=== PATIENT | male | born 1995 | race Caucasian/White ===

== ENCOUNTER 2021-12-09 15:04 | Emergency (ER) | payer OTHER ==
[2021-12-09 15:12] VITALS: BP 126/77
[2021-12-09] MEDS ORDERED: ONDANSETRON 4 MG/2 ML VIAL IVP STA (15:17)
[2021-12-09] MEDS ORDERED: SODIUM CHLORIDE 0.9% 1,000 ML IV STA (15:17)
[2021-12-09] MEDS ORDERED: ONDANSETRON ODT 4 MG TABLET TL STA (15:27)
--- NOTE | 2021-12-09 15:31 | ED Physician Documentation ---
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 He typically works overnight. Went to bed feeling well woke up this morning with some persistent nausea. Some fatigue. No vomiting. No fevers no abdominal pain. No fainting episodes. Denies chest pain or shortness of air. 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 Denies any pertinent past medical history. Denies cannabis or alcohol use though he does use 2 lists tobacco. Review of Systems Constitutional: denies: Fever Eyes: reports: Reviewed and negative Nose: reports: Reviewed and negative Throat: reports: Reviewed and negative Cardiac: reports: Reviewed and negative Respiratory: reports: Reviewed and negative GI: reports: Reviewed and negative : reports: Reviewed and negative Skin: denies: Rash, Lesions Musculoskeletal: reports: Reviewed and negative Neurologic: reports: Reviewed and negative Psychiatric: reports: Reviewed and negative Endocrine: reports: Reviewed and negative PD PAST MEDICAL HISTORY - Present Medications Home Medications: Ambulatory Orders Medication Instructions Recorded Confirmed Ondansetron Odt [Zofran] 4 mg TL Q6H PRN #10 tablet 12/09/21 - Allergies Allergies/Adverse Reactions: Allergies Allergy/AdvReac Type Severity Reaction Status Date / Time No Known Drug Allergies Allergy Verified 12/09/21 15:12 PD ED PE NORMAL - General General: Alert and oriented X 3, No acute distress - HEENT HEENT: PERRL - Neck Neck: Supple, no meningeal sign, No adenopathy - Cardiac Cardiac: RRR, No murmur - Respiratory Respiratory: No respiratory distress, Clear bilaterally - Abdomen Abdomen: Normal bowel sounds, Soft, Non tender - Derm Derm: Normal color, Warm and dry, No rash - Extremities Extremities: No deformity, No tenderness to palpate, Normal ROM s pain - Neuro Neuro: Alert and oriented X 3 Eye Opening: Spontaneous Motor: Obeys Commands Verbal: Oriented GCS Score: 15 Results - Vitals Vitals: Vital Signs - 24 hr 12/09/21 12/09/21 15:08 15:15 Temperature 36.6 C Heart Rate 60 Respiratory 14 12 Rate Blood Pressure 126/77 O2 Saturation 99 Oxygen O2 Source Room air - Labs Labs: Laboratory Tests 12/09/21 12/09/21 12/09/21 15:24 15:24 Unknown WBC 6.4 RBC 5.07 Hgb 17.0 Hct 46.7 MCV 92.1 MCH 33.5 H MCHC 36.4 H RDW 11.9 L Plt Count 208 MPV 10.4 Neut # (Auto) 3.5 Lymph # (Auto) 2.2 [place] # (Auto) 0.7 Eos # (Auto) 0.1 Baso # (Auto) 0.0 Absolute Nucleated RBC 0.00 Nucleated RBC % 0.0 Sodium 140 Potassium 4.2 Chloride 100 L Carbon Dioxide 29 Anion Gap 11.0 BUN 15 Creatinine 1.0 Estimated GFR (MDRD) 91 Glucose 94 Calcium 9.7 Total Bilirubin 1.1 H AST 16 ALT 16 Alkaline Phosphatase 58 Total Protein 8.0 Albumin 5.2 Globulin 2.8 Albumin/Globulin Ratio 1.9 Lipase 35 Urine Color YELLOW Urine Clarity CLEAR Urine pH 6.5 Ur Specific [place] 1.020 Urine Protein NEGATIVE Urine Glucose (UA) NEGATIVE Urine Ketones NEGATIVE Urine Occult Blood TRACE-LYSE Urine Nitrite NEGATIVE Urine Bilirubin NEGATIVE Urine Urobilinogen 1 (NORMAL) Ur Leukocyte Esterase NEGATIVE Ur Microscopic Review NOT INDICATED Urine Culture Comments NOT INDICATED PD MEDICAL DECISION MAKING - ED course Complexity details: reviewed results, re-evaluated patient, considered differential, d/w patient ED course: Well-appearing 26-year-old male presents emergency department for evaluation of nausea that began this morning when he woke up. He frequently reports a.m. nausea but usually resolves and did not today. He has no fevers no abdominal pain and no vomiting. His flight surgeon was unable to see him today and he was advised to come to the ER. Screening labs were unremarkable. He was given some oral Zofran and easily tolerating p.o.'s. Prescription for Zofran will be sent to the pharmacy. Otherwise emergent return precautions were discussed. Given the lack of abdominal tenderness and unremarkable vitals we did defer advanced imaging. Departure - Departure Disposition: 01 Home, Self Care Clinical Impression: Nausea Condition: Stable Record reviewed to determine appropriate education?: Yes Prescriptions: Ondansetron Odt [Zofran] 4 mg TL Q6H PRN #10 tablet PRN Reason: Nausea / Vomiting Comments: Maksim were seen today in the emergency department for nausea and feeling like he had the stomach bug. Your screening labs today were essentially normal. I am sending a prescription for some Zofran to the [facility] in [place]. It is okay for you to return to work tomorrow as long as you are not vomiting, having fevers or belly pain. I do recommend that you stop your use of smokeless tobacco. You have a 25% lifetime risk of developing oral cancer with continued use of this. In addition to this tobacco use can cause worsening a.m. nausea. Please discuss this ED visit with your flight surgeon as soon as you are able.
[2021-12-09 15:37] LABS: BASOPHILS % (AUTO) 0.3 %; EOSINOPHILS # (AUTO) 0.1 10^3/uL (0.0-0.7); EOSINOPHILS % (AUTO) 1.6 %; HCT - HEMATOCRIT 46.7 % (42.0-52.0); LYMPHOCYTES # (AUTO) 2.2 10^3/uL (1.5-3.5); LYMPHOCYTES % (AUTO) 33.8 %; MEAN CORPUSCULAR HEMOGLOBIN 33.5 pg (27.0-31.0); MEAN CORPUSCULAR HGB CONC 36.4 g/dL (32.0-36.0); MEAN CORPUSCULAR VOLUME 92.1 fL (80.0-94.0); MEAN PLATELET VOLUME 10.4 fL (7.4-11.4); MONOCYTES # (AUTO) 0.7 10^3/uL (0.0-1.0); MONOCYTES % (AUTO) 10.2 %; NEUTROPHILS # (AUTO) 3.5 10^3/uL (1.5-6.6); NEUTROPHILS % (AUTO) 53.9 %; PLT - PLATELET COUNT 208 10^3/uL (130-450); RED BLOOD COUNT 5.07 10^6/uL (4.70-6.10); RED CELL DISTRIBUTION WIDTH 11.9 % (12.0-15.0); WHITE BLOOD COUNT 6.4 x10^3/uL (4.8-10.8)
[2021-12-09 15:41] LABS: ALBUMIN 5.2 g/dL (3.2-5.5); ALBUMIN/GLOBULIN RATIO 1.9 (1.0-2.2); BILIRUBIN,TOTAL 1.1 mg/dL (0.2-1.0); CALCIUM 9.7 mg/dL (8.5-10.3); POTASSIUM 4.2 mmol/L (3.5-5.0)
[2021-12-09 15:45] LABS: BILIRUBIN,URINE NEGATIVE (NEGATIVE); GLUCOSE, URINE (UA) NEGATIVE (NEGATIVE); KETONES,URINE (UA) NEGATIVE (NEGATIVE); LEUKOCYTE ESTERASE, URINE NEGATIVE (NEGATIVE); NITRITE,URINE NEGATIVE (NEGATIVE); OCCULT BLOOD,URINE TRACE-LYSE (NEGATIVE); PH,URINE 6.5 PH (5.0-7.5); PROTEIN,URINE NEGATIVE (NEGATIVE); UROBILINOGEN,URINE 1 (NORMAL) E.U./dL (NORMAL)
[2021-12-09 15:53] LABS: CLARITY,URINE CLEAR (CLEAR)
== END 2021-12-09 16:18 | disposition home or self-care (01) ==
LOC: ED 15:04
DX: R11.0 Nausea (principal)
CPT/HCPCS: 36415; 80053; 81003; 83690; 85025; 99283; Q0162; 81001; 87086

== ENCOUNTER 2022-06-20 14:50 | Emergency (ER) | payer OTHER ==
[2022-06-20 15:00] VITALS: BP 111/82
--- NOTE | 2022-06-20 15:55 | XRAY Report ---
PROCEDURE: Hand 3 View RT INDICATIONS: Trauma TECHNIQUE: 3 views of the hand(s) acquired. COMPARISON: None FINDINGS: Bones: No fractures or dislocations. No suspicious bony lesions. Soft tissues: No suspicious soft tissue calcifications. IMPRESSION: No acute radiographic findings. If pain persists, consider repeat imaging in 5-7 days to exclude occu lt fracture. Reviewed by: Hilary Funes MD on 06/20/2022 3:53 PM PDT Approved by: Hilary Funes MD on 06/20/2022 3:53 PM PDT Station ID: [id number]
--- NOTE | 2022-06-20 17:35 | ED Physician Documentation ---
PD HPI UPPER EXT INJURY - Stated complaint Stated Complaint: RT HAND INJ - Chief complaint Chief Complaint: Trauma Ext - History obtained from History obtained from: Patient - History of Present Illness Location: Right, Hand - Additonal information Additional information: Patient is a 27-year-old male presenting for evaluation of right hand pain after injuring it at work this morning. Patient was lifting heavy metal lockers and accidentally smashed it between 2. He was able to continue working but through the day it has caused increased discomfort. He did not take a blood thinner.He is right-hand dominant. Review of Systems Constitutional: denies: Fever Nose: denies: Congestion Cardiac: denies: Chest pain / pressure Respiratory: denies: Dyspnea GI: denies: Abdominal Pain : denies: Dysuria Musculoskeletal: reports: Extremity pain, Extremity swelling Neurologic: denies: Headache PD PAST MEDICAL HISTORY - Present Medications Home Medications: Ambulatory Orders Medication Instructions Recorded Confirmed Amitriptyline [Elavil] 10 mg PO HS 06/20/22 06/20/22 - Allergies Allergies/Adverse Reactions: Allergies Allergy/AdvReac Type Severity Reaction Status Date / Time No Known Drug Allergies Allergy Verified 12/09/21 15:12 PD ED PE NORMAL - General General: Alert and oriented X 3, No acute distress, Well developed/nourished - HEENT HEENT: Atraumatic - Neck Neck: Supple, no meningeal sign - Respiratory Respiratory: No respiratory distress - Extremities Extremities: No tenderness to palpate, Normal ROM s pain, Other (Contusion and mild swelling to dorsum of right hand; Brisk cap refill, strong radial pulse; No snuffbox tenderness) - Neuro Neuro: No motor deficit, No sensory deficit Results - Vitals Vitals: Vital Signs - 24 hr 06/20/22 14:56 Temperature 37 C Heart Rate 98 Respiratory 16 Rate Blood Pressure 111/82 H O2 Saturation 98 Oxygen O2 Source Room air PD MEDICAL DECISION MAKING - ED course Complexity details: reviewed results ED course: Pt with R hand injury. No deficits on exam. Xray negative for fracture/dislocation. Pt has contusion to hand but no limitation on ROM. COunseled on supportive care and concerning symptoms to return for. Departure - Departure Disposition: 01 Home, Self Care Clinical Impression: Contusion of right hand Qualifiers: Encounter type: initial encounter Qualified Code(s): S60.221A - Contusion of right hand, initial encounter Condition: Stable Instructions: ED Contusion Upper Ext Comments: You were evaluated for an injury to your right hand. Your x-ray is negative for a fracture or dislocated bone. You do have a bruise to the hand and we have applied an Lior wrap which may help with any discomfort.Please continue with ice, anti-inflammatory such as ibuprofen or acetaminophen, elevating the hand. If you have any worsening symptoms please return to the ER. Forms: Activity restrictions Discharge Date/Time: 06/20/22 17:41
== END 2022-06-20 17:41 | disposition home or self-care (01) ==
LOC: ED 14:50
DX: S60.221A Contusion of right hand, initial encounter (principal); W23.0XXA Caught, crushed, jammed, or pinched between moving objects, initial encounter; Y93.89 Activity, other specified; Y99.0 Civilian activity done for income or pay
CPT/HCPCS: 99282; 99283